=== PATIENT | female | born 1995 | race Caucasian/White ===

== ENCOUNTER 2017-03-14 07:07 | Emergency (ER) | payer SELFPAY ==
[~2017-03-14] VITALS: Ht 170.2 cm; Wt 107.9 kg
[~2017-03-14 07:07] MED LIST: CIPR750T2 PO; NYST100010 TOP; PYRI200T4 PO
[2017-03-14 07:10] VITALS: BP 125/86; PULSE 75; RESP 16; TEMP 98.2; O2SAT 97
--- NOTE | 2017-03-14 07:23 | PD ---
HPI Chief Complaint: Complaint Time Seen by Provider: 07:16 Travel History International Travel<30 days: No Contact w/Intl Traveler<30days: No Traveled to known affect area: No History of Present Illness HPI This is a 22-year-old female who presents to the emergency department having woken up this morning with pain with urination, constant, moderate severity, associated with some lower abdominal cramping. She also reports that when she looked to her vagina looked very swollen which is unusual for her. She denies any vaginal discharge. 9 months ago she was told she had PID, and she also says she has recurrent urinary tract infections and kidney stones. She has had one sexual partner in the last 6 months. She denies any fevers or chills and denies any vomiting. PFSH Past Medical History Depression: Yes Diminished Hearing: No Genitourinary: Yes (frequent uti) Kidney Stones: Yes Reproductive: Yes (BODY DOESNT PRODUCE PERIODS) Immunizations Current: Yes ?: Not : 0 Social History Alcohol Use: Yes (occasionally on weekends) Tobacco Use: No Substance Use: Yes (thc) Allergies-Medications (Allergen,Severity, Reaction): Coded Allergies: Amoxicillin (Verified Allergy, Severe, RASH, 03/14/17) Penicillin (Verified Allergy, Severe, Rash, 03/14/17) Reported Meds & Prescriptions Reported Meds & Active Scripts Active No Active Prescriptions or Reported Medications Review of Systems Except as stated in HPI: all other systems reviewed are Neg Physical Exam Narrative GENERAL:Well appearing, no acute distress SKIN: Focused skin assessment warm and dry. HEAD: Atraumatic. Normocephalic. EYES: Pupils equal and round. No injection or drainage. ENT: Moist mucous membranes NECK: Trachea midline. CARDIOVASCULAR: Regular rate and rhythm. No murmur appreciated. RESPIRATORY: Clear to auscultation. Breath sounds equal bilaterally. GASTROINTESTINAL: Abdomen soft, mildly tender to palpation in the suprapubic region without rebound or guarding. [employer]: edema and swelling of the vulva and labia minora with mild amount of cheesy white discharge in the vault. No cervical motion or adnexal tenderness. MUSCULOSKELETAL: No obvious deformities. NEUROLOGICAL: Awake and alert. No obvious cranial nerve deficits. Moving all extremities. PSYCHIATRIC: Appropriate mood and affect; insight and judgment normal. Data Data Last Documented VS Vital Signs Date Time Temp Pulse Resp B/P Pulse Ox O2 Delivery O2 Flow Rate FiO2 03/14/17 07:10 98.2 75 16 125/86 97 Orders Urinalysis - C+S If Indicated (03/14/17 07:12) Wet Prep Profile (03/14/17 07:21) Gc And Chlamydia Pcr (03/14/17 07:21) Bedside Glucose ELIZABETH.AC&HS (03/14/17 07:42) Labs Laboratory Tests Test 03/14/17 03/14/17 07:15 07:40 Urine Collection Type CLEAN CATCH Urine Color YELLOW Urine Turbidity CLEAR Urine pH 6.0 Urine Specific [place] 1.018 Urine Protein NEG mg/dL Urine Glucose (UA) NEG mg/dL Urine Ketones NEG mg/dL Urine Occult Blood NEG Urine Nitrite NEG Urine Bilirubin NEG Urine Leukocyte Esterase NEG Urine RBC 0-3 /hpf Urine WBC 0-2 /hpf Urine Squamous Epithelial 6-8 /hpf Cells Microscopic Urinalysis Comment CULT NOT INDICATED Urine Collection Time 07:15 Clue Cells (Wet Prep) NONE SEEN Vaginal Trichomonas (Wet Prep) NONE SEEN Vaginal Yeast (Wet Prep) NONE SEEN MDM Medical Decision Making Medical Screen Exam Complete: Yes Emergency Medical Condition: Yes Interpretation(s) Urinalysis is negative for infection Wet prep demonstrates no clue cells or yeast Differential Diagnosis Urinary tract infection, yeast infection, cervicitis, irritant dermatitis Narrative Course This is a 25-year-old female who presents to the emergency department with swelling of her vagina and dysuria. On genital exam the patient has edema and swelling of the vulva consistent with an irritant dermatitis. The patient does admit that she has been using a new soap that she bought from [employer] over the past 2 weeks. She also has a scant amount of cheesy white discharge consistent with a yeast infection. Despite wet prep results given her physical exam plan for treatment with fluconazole and hydrocortisone cream and I instructed her to discontinue use of her new soap. Diagnosis Primary Impression: Irritant dermatitis Additional Impression: Yeast infection Patient Instructions: General Instructions Additional Instructions: If you develop fever, chills, severe abdominal pain, persistent vomiting or inability to eat return to the emergency department. Follow up with [facility] at: Follow up with: [facility] [address] [place] [address] Office Hours Monday - 9:00 am - 5:30 pm Monday 8:00 am - 12:00 pm Teen Tuesdays 4:00 - 6:30 pm Med/Other Pt SpecificInfo: Prescription(s) given Scripts Hydrocortisone Topical 1% Cream1 Applic TOPICAL BID PRN (ITCHING) 5 Days Ref 0 Prov:Keya Sampson MD 03/14/17 Disposition: 01 DISCHARGE HOME Condition: Stable Keya Sampson MD March 14, 2017 07:23
[2017-03-14 07:31] LABS: BLOOD, URINE NEG (NEG); GLUCOSE,URINE NEG (NEG); KETONE, URINE NEG (NEG); NITRITE,URINE NEG (NEG)
[2017-03-14 07:37] LABS: METHOD OF COLLECTION CLEAN CATCH; URINE COLOR YELLOW (YELLW/STRAW)
[2017-03-14 07:38] LABS: RBC, URINE 0-3 /hpf (0-3); WBC, URINE 0-2 /hpf (0-5)
[2017-03-14 07:39] LABS: COMMENT (UR) CULT NOT INDICATED; CULTURE IF INDICATED CULT NOT INDICATED
[2017-03-14] MEDS ORDERED: HYDR1CRE TOPICAL (08:12)
[2017-03-14] MEDS ORDERED: FLUCONAZOLE 100 MG TAB PO ONE (08:15)
[2017-03-14 12:55] LABS: CHLAMYDIA PCR NOT DETECTED (NOT DETECT); NEISSERIA PCR NOT DETECTED (NOT DETECT)
== END 2017-03-14 08:42 | disposition home or self-care (01) ==
LOC: PHED 07:07
DX: L24.9 Irritant contact dermatitis, unspecified cause (principal); B37.9 Candidiasis, unspecified; F32.9 Major depressive disorder, single episode, unspecified
CPT/HCPCS: 81001; 87210; 87491; 87591; 99283

== ENCOUNTER 2017-04-05 09:01 | Emergency (ER) | payer SELFPAY ==
[~2017-04-05 09:01] MED LIST changes: -CIPR750T2 PO; +HYDR1CRE TOPICAL; -NYST100010 TOP; -PYRI200T4 PO
[2017-04-05 09:09] VITALS: BP 121/90; PULSE 73; RESP 20; TEMP 98; O2SAT 97
--- NOTE | 2017-04-05 09:42 | PD ---
HPI Chief Complaint: Abdominal Pain Time Seen by Provider: 09:26 Travel History International Travel<30 days: No Contact w/Intl Traveler<30days: No Traveled to known affect area: No History of Present Illness HPI This 22-year-old female is having some abdominal pain off and on since Monday. The pain she is having is somewhat migratory and crampy in nature. She has had some nausea. She has had 2-3 loose stools per day. She has not vomited. She does not think she is . She does not have periods since he age of 16. PFSH Past Medical History Medical History: Denies Significant Hx Depression: Yes Diminished Hearing: No Genitourinary: Yes (frequent uti) Kidney Stones: Yes Reproductive: Yes (BODY DOESNT PRODUCE PERIODS) Immunizations Current: Yes ?: Not LMP: NEVER PER PT : 0 Past Surgical History Surgical History: No Previous Surgery Social History Alcohol Use: Yes (occasionally on weekends) Tobacco Use: No (never) Substance Use: Yes (thc) Allergies-Medications (Allergen,Severity, Reaction): Coded Allergies: Amoxicillin (Verified Allergy, Severe, RASH, 04/05/17) Penicillin (Verified Allergy, Severe, Rash, 04/05/17) Reported Meds & Prescriptions Reported Meds & Active Scripts Active Zofran Odt (Ondansetron Odt) 4 Mg Tab 4 Mg SL Q6HR PRN Dicyclomine (Dicyclomine HCl) 20 Mg Tab 20 Mg PO TID Hydrocortisone Topical 1% Cream 1 Applic TOPICAL BID PRN 5 Days Review of Systems General / Constitutional: No: Fever, Chills Eyes: No: Diploplia, Blurred Vision HENT: No: Headaches, Vertigo Cardiovascular: No: Chest Pain or Discomfort, Palpitations Respiratory: No: Cough, Shortness of Breath Gastrointestinal: Positive: Nausea, Diarrhea, Abdominal Pain Genitourinary: No: Urgency, Frequency Musculoskeletal: No: Myalgias Skin: No Rash Neurologic: No: Weakness Psychiatric: No: Anxiety Physical Exam Narrative GENERAL: Well-developed female SKIN: Focused skin assessment warm/dry. HEAD: Atraumatic. Normocephalic. EYES: Pupils equal and round. No scleral icterus. No injection or drainage. ENT: No nasal bleeding or discharge. Mucous membranes pink and moist. NECK: Trachea midline. No JVD. CARDIOVASCULAR: Regular rate and rhythm. No murmur appreciated. RESPIRATORY: No accessory muscle use. Clear to auscultation. Breath sounds equal bilaterally. GASTROINTESTINAL: Abdomen soft, non-tender, nondistended. Hepatic and splenic margins not palpable. Bowel sounds active Pelvic: There is slight discharge. There is no pain with movement of the cervix. No masses felt MUSCULOSKELETAL: No obvious deformities. No clubbing. No cyanosis. No edema. NEUROLOGICAL: Awake and alert. No obvious cranial nerve deficits. Motor grossly within normal limits. Normal speech. PSYCHIATRIC: Appropriate mood and affect; insight and judgment normal. Data Data Last Documented VS Vital Signs Date Time Temp Pulse Resp B/P Pulse Ox O2 Delivery O2 Flow Rate FiO2 04/05/17 09:09 98.0 73 20 121/90 97 Orders Urinalysis - C+S If Indicated (04/05/17 09:30) Complete Blood Count With Diff (04/05/17 09:38) Comprehensive Metabolic Panel (04/05/17 09:38) Sodium Chlor 0.9% 1000 Ml Inj (Ns 1000 M (04/05/17 09:45) Ondansetron Inj (Zofran Inj) (04/05/17 09:45) Ed Urine Pregnancytest Poc (04/05/17 09:38) Gc And Chlamydia Pcr (04/05/17 10:58) Wet Prep Profile (04/05/17 10:58) Labs Laboratory Tests Test 04/05/17 04/05/17 04/05/17 09:35 10:00 11:00 Urine Collection Type CLEAN CATCH Urine Color YELLOW Urine Turbidity CLEAR Urine pH 5.5 Urine Specific [place] 1.008 Urine Protein NEG mg/dL Urine Glucose (UA) NEG mg/dL Urine Ketones NEG mg/dL Urine Occult Blood TRACE Urine Nitrite NEG Urine Bilirubin NEG Urine Leukocyte Esterase NEG Urine RBC 0-3 /hpf Urine WBC 0-2 /hpf Urine Squamous Epithelial > 8 /hpf Cells Urine Bacteria RARE /hpf Microscopic Urinalysis Comment CULT NOT INDICATED Urine Collection Time 09:35 White Blood Count 9.1 TH/MM3 Red Blood Count 4.91 MIL/MM3 Hemoglobin 14.6 GM/DL Hematocrit 41.8 % Mean Corpuscular Volume 85.1 FL Mean Corpuscular Hemoglobin 29.8 PG Mean Corpuscular Hemoglobin 34.9 % Concent Red Cell Distribution Width 11.7 % Platelet Count 243 TH/MM3 Mean Platelet Volume 7.7 FL Neutrophils (%) (Auto) 52.2 % Lymphocytes (%) (Auto) 36.2 % Monocytes (%) (Auto) 6.3 % Eosinophils (%) (Auto) 4.3 % Basophils (%) (Auto) 1.0 % Neutrophils # (Auto) 4.7 TH/MM3 Lymphocytes # (Auto) 3.3 TH/MM3 Monocytes # (Auto) 0.6 TH/MM3 Eosinophils # (Auto) 0.4 TH/MM3 Basophils # (Auto) 0.1 TH/MM3 CBC Comment DIFF FINAL Differential Comment Sodium Level 142 MEQ/L Potassium Level 4.2 MEQ/L Chloride Level 108 MEQ/L Carbon Dioxide Level 26.2 MEQ/L Anion Gap 8 MEQ/L Blood Urea Nitrogen 12 MG/DL Creatinine 0.93 MG/DL Estimat Glomerular Filtration 75 ML/MIN Rate Random Glucose 87 MG/DL Calcium Level 8.3 MG/DL Total Bilirubin 0.4 MG/DL Aspartate Amino Transf 28 U/L (AST/SGOT) Alanine Aminotransferase 48 U/L (ALT/SGPT) Alkaline Phosphatase 66 U/L Total Protein 7.3 GM/DL Albumin 3.6 GM/DL Clue Cells (Wet Prep) NONE SEEN Vaginal Trichomonas (Wet Prep) NONE SEEN Vaginal Yeast (Wet Prep) NONE SEEN MDM Medical Decision Making Medical Screen Exam Complete: Yes Emergency Medical Condition: Yes Medical Record Reviewed: Yes Differential Diagnosis Differential includes gastroenteritis, enteritis, kidney stone Narrative Course Urine is negative for blood. White count is 9000. Patient is complaining of some nausea . I believe she has a gastroenteritis most likely viral. She'll be prescribed Bentyl and Zofran Diagnosis Primary Impression: Gastroenteritis Scripts Ondansetron Odt (Zofran Odt)4 Mg Tab4 Mg SL Q6HR PRN (Nausea/Vomiting) #10 TAB Ref 0 Prov:Jayden Keita MD 04/05/17 Dicyclomine 20 Mg Tab20 Mg PO TID #20 TAB Ref 0 Prov:Jayden Keita MD 04/05/17 Disposition: 01 DISCHARGE HOME Condition: Stable Jayden Keita MD Apr 05, 2017 09:41
[2017-04-05] MEDS ORDERED: SODIUM CHLOR 0.9% 1000 ML INJ 1,000 ML IV ONE (09:45)
[2017-04-05] MEDS ORDERED: ONDANSETRON HCL 4 MG/2 ML VIAL IV PUSH ONE (09:45)
[2017-04-05 10:08] LABS: BLOOD, URINE TRACE (NEG); GLUCOSE,URINE NEG (NEG); KETONE, URINE NEG (NEG); NITRITE,URINE NEG (NEG); PH, URINE 5.5 (5.0-8.5)
[2017-04-05 10:19] LABS: METHOD OF COLLECTION CLEAN CATCH; URINE COLOR YELLOW (YELLW/STRAW)
[2017-04-05 10:20] LABS: RBC, URINE 0-3 /hpf (0-3); SQUAMOUS EPITHELIAL CELL URINE > 8 /hpf (0-5); WBC, URINE 0-2 /hpf (0-5)
[2017-04-05 10:20] LABS: CHLORIDE 108 MEQ/L (98-107); POTASSIUM 4.2 MEQ/L (3.5-5.1); SODIUM (NA) 142 MEQ/L (136-145)
[2017-04-05 10:21] LABS: BACTERIA, URINE RARE /hpf; COMMENT (UR) CULT NOT INDICATED; CULTURE IF INDICATED CULT NOT INDICATED
[2017-04-05 10:25] LABS: ANION GAP 8 MEQ/L (5-15); BICARBONATE 26.2 MEQ/L (21.0-32.0); BLOOD UREA NITROGEN 12 MG/DL (7-18)
[2017-04-05 10:28] LABS: ALT (GPT) 48 U/L (10-53); AST (GOT) 28 U/L (15-37); GLOMERULAR FILTRATION RATE 75 ML/MIN (>89)
[2017-04-05 10:30] LABS: AUTOMATED NEUTROPHIL # 4.7 TH/MM3 (1.8-7.7); BASOPHIL # 0.1 TH/MM3 (0-0.2); EOSINOPHIL # 0.4 TH/MM3 (0-0.4); EOSINOPHIL % 4.3 % (0.0-4.0); HEMATOCRIT 41.8 % (35.0-46.0); HEMO FLAGS DIFF FINAL; LYMPH % 36.2 % (9.0-44.0); LYMPHOCYTE # 3.3 TH/MM3 (1.0-4.8); MEAN CELL VOLUME 85.1 FL (80.0-100.0); MEAN CORPUSCULAR HEMOGLOBIN 29.8 PG (27.0-34.0); MEAN CORPUSCULAR HGB CONC 34.9 % (32.0-36.0); MONO % 6.3 % (0.0-8.0); NEUT % 52.2 % (16.0-70.0); PLATELET COUNT 243 TH/MM3 (150-450); RED BLOOD COUNT 4.91 MIL/MM3 (4.00-5.30); RED CELL DISTRIBUTION WIDTH 11.7 % (11.6-17.2); TOTAL BILIRUBIN ADULT 0.4 MG/DL (0.2-1.0); WHITE BLOOD COUNT 9.1 TH/MM3 (4.0-11.0)
[2017-04-05 10:31] LABS: ALKALINE PHOSPHATASE 66 U/L (45-117)
[2017-04-05] MEDS ORDERED: DICY20TA10 PO (11:03)
[2017-04-05] MEDS ORDERED: ZOFR4TAB3 SL (11:03)
[2017-04-05 11:52] VITALS: BP 120/88; PULSE 77; RESP 18; O2SAT 99
[2017-04-05 15:45] LABS: CHLAMYDIA PCR NOT DETECTED (NOT DETECT); NEISSERIA PCR NOT DETECTED (NOT DETECT)
== END 2017-04-05 11:58 | disposition home or self-care (01) ==
LOC: PHED 09:01
DX: K52.9 Noninfective gastroenteritis and colitis, unspecified (principal); Z87.442 Personal history of urinary calculi
CPT/HCPCS: 80053; 81001; 84703; 85025; 87210; 87491; 87591; 96361; 96374; 99284; J2405; J7030

== ENCOUNTER 2018-03-06 00:02 | Emergency (ER) | payer SELFPAY ==
[~2018-03-06] VITALS: Ht 167.6 cm; Wt 112.4 kg
[~2018-03-06 00:02] MED LIST changes: +DICY20TA10 PO; +ZOFR4TAB3 SL
[2018-03-06 00:06] VITALS: BP 158/96; PULSE 91; RESP 16; TEMP 97.9; O2SAT 98
[2018-03-06] MEDS ORDERED: MEDR4PAK PO (00:21)
[2018-03-06] MEDS ORDERED: HYDR-3133 PO (00:21)
--- NOTE | 2018-03-06 00:28 | PD ---
HPI Chief Complaint: Suspected bug bite. Time Seen by Provider: 00:09 Travel History International Travel<30 days: No Contact w/Intl Traveler<30days: No Traveled to known affect area: No History of Present Illness HPI This is a 23-year-old female who presents today with complaints of right arm redness and itching. Patient states that she got bit by something yesterday and has become more painful and itchy. She denies any fevers, chills. She does report that it ann on the middle where she feels as though she was bit and itches on the surrounding area. She reports is become more red over the last 24 hours. She reports that her mom was concerned that this may be a brown recluse bite. PFSH Past Medical History Depression: Yes Diminished Hearing: No Genitourinary: Yes (frequent uti) Kidney Stones: Yes Reproductive: Yes (BODY DOESNT PRODUCE PERIODS) Immunizations Current: Yes : 0 Social History Alcohol Use: Yes (occasionally on weekends) Tobacco Use: No (never) Substance Use: Yes (thc) Allergies-Medications (Allergen,Severity, Reaction): Coded Allergies: amoxicillin (Unverified Allergy, Severe, RASH, 06/06/17) penicillin G (Unverified Allergy, Severe, Rash, 06/06/17) Reported Meds & Prescriptions Reported Meds & Active Scripts Active Medrol Dosepak (Methylprednisolone) 4 Mg Dspk 4 Mg PO DIRECTED Per Pharmacist direction Hydroxyzine HCl 25 Mg Tab 25 Mg PO QID PRN Zofran Odt (Ondansetron Odt) 4 Mg Tab 4 Mg SL Q6HR PRN Dicyclomine (Dicyclomine HCl) 20 Mg Tab 20 Mg PO TID Hydrocortisone Topical 1% Cream 1 Applic TOPICAL BID PRN 5 Days Review of Systems Except as stated in HPI: all other systems reviewed are Neg HENT: No: Headaches, Neck Stiffness Respiratory: No: Shortness of Breath, Wheezing Gastrointestinal: No: Nausea, Vomiting Skin: Positive Itching, Positive Lesions (Several red appearing bug bites with surrounding erythema) Physical Exam Narrative GENERAL: Well-nourished, well-developed patient. SKIN: Focused skin assessment warm/dry. HEAD: Normocephalic/atraumatic. EYES: No scleral icterus. No injection or drainage. MUSCULOSKELETAL: On examination patient's right arm, there is 4 1/4 cm red areas with surrounding light pink erythema. This has the look of a secondary allergic process. There is no evidence of drainage. There is no cellulitic appearance. There is no lymphangitis. There is full range of motion. NEUROLOGICAL: Awake and alert. Cranial nerves II through XII intact. Motor and sensory grossly within normal limits. Five out of 5 muscle strength in all muscle groups. Normal speech. Data Data Last Documented VS Vital Signs Date Time Temp Pulse Resp B/P (MAP) Pulse Ox O2 Delivery O2 Flow Rate FiO2 03/06/18 00:06 97.9 91 16 158/96 (116) 98 Orders Orders Tetanus/Diphtheria Tox Adult (Tetanus/Di (03/06/18 00:30) Diphenhydramine Inj (Benadryl Inj) (03/06/18 00:30) Prednisone (Deltasone) (03/06/18 00:30) MDM Medical Decision Making Medical Screen Exam Complete: Yes Emergency Medical Condition: Yes Differential Diagnosis Bug bite versus topical dermatitis versus cellulitis Narrative Course 23-year-old female presents with painful and itchy red lesions to her right middle forearm and lower inner arm. The patient feels as though she was bitten by something yesterday. She states that the pink surrounding redness has increased since yesterday. She states she took Benadryl and feels it got worse with placing ice on it. The patient be instructed to use moist compresses on the affected area. She is instructed to keep it dry during the remainder of the day. She will be given a prescription for hydroxyzine 25 mg p.o. 4 times daily as needed as well as a Medrol Dosepak. She has been given 50 mg Benadryl injection here as well as a tetanus immunization and 40 mg of prednisone. She is instructed to return if it develops any worsening appearance. Diagnosis Primary Impression: Suspected insect bite with secondary histamine release Additional Instructions: Moist compress 3-4 times daily. Keep it dry during the remainder of the day. Return if fevers chills, increased redness, or any other reason that concerns you. Med/Other Pt SpecificInfo: Prescription(s) given Scripts Methylprednisolone Dosepak (Medrol Dosepak) 4 Mg Dspk 4 MG PO DIRECTED, #1 DSPK 0 Refills Per Pharmacist direction Prov: Joe Barrientos MD 03/06/18 Hydroxyzine HCl (Hydroxyzine HCl) 25 Mg Tab 25 MG PO QID Y for itching, #20 TAB 0 Refills Prov: Joe Barrientos MD 03/06/18 Disposition: 01 DISCHARGE HOME Condition: Stable Joe Barrientos MD March 06, 2018 00:28
[2018-03-06] MEDS ORDERED: predniSONE 20 MG TAB PO ONE (00:30)
[2018-03-06] MEDS ORDERED: TETANUS/DIPHTHERIA TOXOID ADULT 0.5 ML VIAL IM ONE (00:30)
[2018-03-06] MEDS ORDERED: diphenhydrAMINE HCL 50 MG/ML VIAL IM ONE (00:30)
== END 2018-03-06 00:50 | disposition home or self-care (01) ==
LOC: PHED 00:02
DX: L98.9 Disorder of the skin and subcutaneous tissue, unspecified (principal); F32.9 Major depressive disorder, single episode, unspecified; F12.90 Cannabis use, unspecified, uncomplicated; Z23 Encounter for immunization
CPT/HCPCS: 90471; 90714; 96372; 99283; J1200; J7512

== ENCOUNTER 2018-04-05 00:23 | Emergency (ER) | payer SELFPAY ==
[~2018-04-05] VITALS: Ht 167.6 cm; Wt 109.0 kg
[~2018-04-05 00:23] MED LIST changes: +HYDR-3133 PO; +MEDR4PAK PO
[2018-04-05 00:25] VITALS: BP 146/90; PULSE 76; RESP 18; TEMP 97.8; O2SAT 97
--- NOTE | 2018-04-05 01:00 | PD ---
HPI Chief Complaint: Flank/Kidney Pain Time Seen by Provider: 00:56 Travel History International Travel<30 days: No Contact w/Intl Traveler<30days: No Traveled to known affect area: No History of Present Illness HPI The patient is a 23-year-old female that complains of right flank pain beginning yesterday morning at 8:00. The pain goes from 0/10 which she has now to a sharp pain of 9/10. The pain is always on the right flank. She does have nausea without vomiting. She does have dysuria, frequency and urgency. She has a history of both kidney stones and recurrent urinary tract infections. She denies any fever. She states there is no possibility of . PFSH Past Medical History Depression: Yes Diminished Hearing: No Genitourinary: Yes (frequent uti) Kidney Stones: Yes Reproductive: Yes (BODY DOESNT PRODUCE PERIODS) Immunizations Current: Yes Tetanus Vaccination: < 5 Years Influenza Vaccination: No ?: Not : 0 Past Surgical History Surgical History: No Previous Surgery Social History Alcohol Use: Yes (occasionally ) Tobacco Use: No Substance Use: No (denies but HX of thc) Allergies-Medications (Allergen,Severity, Reaction): Coded Allergies: amoxicillin (Unverified Allergy, Severe, RASH, 04/05/18) penicillin G (Unverified Allergy, Severe, Rash, 04/05/18) Reported Meds & Prescriptions Reported Meds & Active Scripts Active Macrobid (Nitrofurantoin Monoh/Nitrofur Macro) 100 Mg Cap 100 Mg PO BID 10 Days Ibuprofen Liq (Ibuprofen) 100 Mg/5 Ml Susp 100 Mg PO Q6H PRN Flomax (Tamsulosin HCl) 0.4 Mg Cap 0.4 Mg PO HS Phenergan (Promethazine HCl) 25 Mg Tablet 25 Mg PO Q6H PRN Percocet (Oxycodone-Acetaminophen) 5-325 mg Tab 1-2 Tab PO Q4H PRN Medrol Dosepak (Methylprednisolone) 4 Mg Dspk 4 Mg PO DIRECTED Per Pharmacist direction Hydroxyzine HCl 25 Mg Tab 25 Mg PO QID PRN Zofran Odt (Ondansetron Odt) 4 Mg Tab 4 Mg SL Q6HR PRN Dicyclomine (Dicyclomine HCl) 20 Mg Tab 20 Mg PO TID Hydrocortisone Topical 1% Cream 1 Applic TOPICAL BID PRN 5 Days Review of Systems Except as stated in HPI: all other systems reviewed are Neg Physical Exam Narrative GENERAL: The patient is alert, oriented 3 in no apparent distress. Her vital signs show blood pressure 146/90 but are otherwise normal. SKIN: Focused skin assessment warm/dry. No wrist slash campos nor needle tracks are present. HEAD: Atraumatic. Normocephalic. EYES: Pupils equal and round. No scleral icterus. No injection or drainage. ENT: No nasal bleeding or discharge. Mucous membranes pink and moist. NECK: Trachea midline. No JVD. CARDIOVASCULAR: Regular rate and rhythm. No murmur appreciated. RESPIRATORY: No accessory muscle use. Clear to auscultation. Breath sounds equal bilaterally. GASTROINTESTINAL: Abdomen soft, non-tender, nondistended. Hepatic and splenic margins not palpable. No guarding or rebound is present. MUSCULOSKELETAL: No obvious deformities. No clubbing. No cyanosis. No edema. NEUROLOGICAL: Awake and alert. No obvious cranial nerve deficits. Motor grossly within normal limits. Normal speech. PSYCHIATRIC: Appropriate mood and affect; insight and judgment normal. Data Data Last Documented VS Vital Signs Date Time Temp Pulse Resp B/P (MAP) Pulse Ox O2 Delivery O2 Flow Rate FiO2 04/05/18 00:25 97.8 76 18 146/90 (108) 97 Orders Orders Urinalysis - C+S If Indicated (04/05/18 01:13) Ed Urine Pregnancytest Poc (04/05/18 01:13) Ct Abd/Pel W/O Iv Contrast (04/05/18 01:38) Urine Culture (04/05/18 01:05) Tamsulosin (Flomax) (04/05/18 02:30) Nitrofurantoin Monohyd Macrocr (Macrobid (04/05/18 02:30) Labs Laboratory Tests Test 04/05/18 01:05 Urine Color YELLOW Urine Turbidity CLOUDY Urine pH 6.5 Urine Specific [place] 1.025 Urine Protein 100 mg/dL Urine Glucose (UA) NEG mg/dL Urine Ketones TRACE mg/dL Urine Occult Blood LARGE Urine Nitrite POS Urine Bilirubin NEG Urine Urobilinogen 1.0 MG/DL Urine Leukocyte Esterase TRACE Urine RBC 10-14 /hpf Urine WBC 6-8 /hpf Urine Squamous Epithelial Cells 6-8 /hpf Urine Calcium Oxalate Crystals FEW /hpf Urine Amorphous Sediment LARGE Urine Bacteria FEW /hpf Urine Mucus FEW /lpf Microscopic Urinalysis Comment CULTURE INDICATED MDM Medical Decision Making Medical Screen Exam Complete: Yes Emergency Medical Condition: Yes Medical Record Reviewed: Yes Interpretation(s) The urine shows cloudy turbidity, 100 protein, trace ketones, large blood, positive nitrate, trace leukocyte esterase with 6-8 white cells and 10-14 red cells and few bacteria and culture is indicated. The CT abdomen/pelvis with no IV contrast shows distal right ureteral calculus measuring 2 mm with mild distal hydroureter. No evidence of hydronephrosis. There are multiple bilateral renal calculi also noted and multiple nonspecific mildly prominent retroperitoneal and left inguinal lymph nodes slightly increased in size when compared to a study of 2016. The spleen appears mildly prominent also. Differential Diagnosis Cystitis, pyelonephritis, urinary stone, appendicitis-unlikely Narrative Course The patient appears to have a 2 mm urinary stone with a mild cystitis. Plan: The patient was given Macrobid, Phenergan, Percocet, Flomax and Motrin. She should follow-up with her primary care physician. She should not drink alcohol or drive on the Percocet. Diagnosis Primary Impression: Urinary stone Additional Impression: Cystitis Additional Instructions: Do not drink alcohol or drive on the Percocet. The Flomax is to open up your urinary tube so that the stone will flow through. Drink plenty of liquids so that you have urine flowing around the stone. Follow-up with a urologist if you have continued pain. Med/Other Pt SpecificInfo: Prescription(s) given Scripts Nitrofurantoin Monohydrate Macrocrystals (Macrobid) 100 Mg Cap 100 MG PO BID for Infection for 10 Days, #20 CAP 0 Refills Prov: Gualberto Padron MD 04/05/18 Ibuprofen Liq (Ibuprofen Liq) 100 Mg/5 Ml Susp 100 MG PO Q6H Y for nic, #20 ML 0 Refills Prov: Gualberto Padron MD 04/05/18 Tamsulosin (Flomax) 0.4 Mg Cap 0.4 MG PO HS for Manage Prostate Problems, #10 CAP 0 Refills Prov: Gualberto Padron MD 04/05/18 Promethazine (Phenergan) 25 Mg Tablet 25 MG PO Q6H Y for NAUSEA OR VOMITING, #10 TAB 0 Refills Prov: Gualberto Padron MD 04/05/18 Oxycodone-Acetaminophen (Percocet) 5-325 mg Tab 1-2 TAB PO Q4H Y for PAIN, #10 TAB 0 Refills Prov: Gualberto Padron MD 04/05/18 Disposition: 01 DISCHARGE HOME Condition: Stable Gualberto Padron MD Apr 05, 2018 01:00
[2018-04-05 01:22] LABS: BILIRUBIN, URINE NEG (NEG); BLOOD, URINE LARGE (NEG); GLUCOSE,URINE NEG (NEG); KETONE, URINE TRACE mg/dL (NEG); NITRITE,URINE POS (NEG); PH, URINE 6.5 (5.0-8.5); URINE COLOR YELLOW (YELLW/STRAW); URINE LEUKOCYTE ESTERASE TRACE (NEG)
[2018-04-05 02:11] LABS: BACTERIA, URINE FEW /hpf; MUCUS URINE FEW /lpf (OCC)
--- NOTE | 2018-04-05 02:12 | RADRPT ---
EXAM DATE: 04/05/2018 1:50 AM EDT AGE/SEX: 23 years / Female INDICATIONS: Right flank pain. CLINICAL DATA: This is the patient's initial encounter. Patient reports that signs and symptoms have been present for 1 day and indicates a pain score of 8/10. MEDICAL/SURGICAL HISTORY: Renal calculi. . RADIATION DOSE: 24.14 CTDI (mGy) ; High dose protocol COMPARISON: [facility], CT ABDOMEN & PELVIS W/O CONTRAST, 05/16/2016. . TECHNIQUE: Multiple contiguous axial images were obtained through the abdomen. Images were obtained using multiple row detector helical technique. Using dose reduction techniques, radiation dose was ke pt as low as reasonably achievable to obtain optimal diagnostic quality images. FINDINGS: Lower Lungs: The visualized lower lungs are clear. Liver: The liver has a homogeneous density without space-occupying lesion. There is no dilation of th e biliary tree. Spleen: Spleen is partially visualized but is prominent size measuring greater than 12 cm in cranioc audal dimension. Pancreas: Unremarkable without mass or calcification. Kidneys: 3 mm calculus in the anterior midpole of the right kidney unchanged. Previously seen puncta te calculus in the upper pole the right kidney is no longer seen. 2 adjacent punctate calculi upper p ole of the left kidney are new. 3 mm calculus in the posterior mid pole of the left kidney has increa sed in size. 2 mm calculus in the distal right ureter just proximal to the ureterovesical junction. M ild distal right hydroureter. No evidence for hydronephrosis. No ureteral calculi on the left. Adrenal Glands: Unremarkable. Aorta: The aorta and proximal iliac vessels are grossly unremarkable without aneurysmal dilation. Bowel/Mesentery: No evidence of bowel dilatation. No free air or free fluid. Appendix within normal limits. Abdominal Wall: Intact. Retroperitoneum: Multiple mildly prominent retroperitoneal lymph nodes are again seen. The largest i s at the level of the lower poles of the kidneys measuring 1.5 x 0.9 cm. It measured 1.4 x 0.8 cm on the prior study. Bladder: Contours are smooth. Reproductive Organs: No abnormal masses or calcifications seen. Inguinal: Prominent left inguinal lymph nodes. The largest measures 2.4 x 1.3 cm compared to 2.0 x 1 .2 cm on the prior study. Bony Structures: Unremarkable. CONCLUSION: 1. Distal right ureteral calculus measuring 2 mm with mild distal hydroureter. No evidence of hydron ephrosis. 2. Multiple bilateral renal calculi. 3. Multiple nonspecific mildly prominent retroperitoneal and left inguinal lymph nodes, slightly inc reased in size when compared to the prior study 2015. 4. Spleen also appears mildly prominent in size. It measured 13 cm in craniocaudal dimension on the prior study and is not fully visualized on this study but grossly unchanged in inferior extent. Electronically signed by: Josef Riley MD 04/05/2018 2:10 AM EDT
[2018-04-05 02:13] LABS: AMORPHOUS SEDIMENT, URINE LARGE; CALCIUM OXALATE CRYSTALS,URINE FEW /hpf
[2018-04-05] MEDS ORDERED: PERC5TAB12 PO (02:30)
[2018-04-05] MEDS ORDERED: NITROFURANTOIN MONOHYD MACROCR 100 MG CAP PO ONE (02:30)
[2018-04-05] MEDS ORDERED: TAMS5CAP PO (02:30)
[2018-04-05] MEDS ORDERED: PROM25TA10 PO (02:30)
[2018-04-05] MEDS ORDERED: TAMSULOSIN HCL 0.4 MG CAP PO ONE (02:30)
[2018-04-05] MEDS ORDERED: MACR100C2 PO (02:30)
[2018-04-05] MEDS ORDERED: IBUP100S11 PO (02:30)
[2018-04-05 02:53] VITALS: BP 130/73
== END 2018-04-05 02:56 | disposition home or self-care (01) ==
LOC: PHED 00:23
DX: N20.1 Calculus of ureter (principal); N30.90 Cystitis, unspecified without hematuria; F32.9 Major depressive disorder, single episode, unspecified; Z87.442 Personal history of urinary calculi; Z87.440 Personal history of urinary (tract) infections
CPT/HCPCS: 74176; 81001; 84703; 87086; 99284

== ENCOUNTER 2018-04-12 11:13 | Emergency (ER) | payer SELFPAY ==
[~2018-04-12] VITALS: Ht 170.2 cm; Wt 109.0 kg
[~2018-04-12 11:13] MED LIST changes: +IBUP100S11 PO; +MACR100C2 PO; +PERC5TAB12 PO; +PROM25TA10 PO; +TAMS5CAP PO
[2018-04-12 11:19] VITALS: BP 132/95; PULSE 92; RESP 16; TEMP 98.1; O2SAT 95
[2018-04-12] MEDS ORDERED: SODIUM CHLOR 0.9% 1000 ML INJ 1,000 ML IV SCH (11:38)
--- NOTE | 2018-04-12 11:44 | PD ---
HPI Chief Complaint: GI Complaint Time Seen by Provider: 11:38 Travel History International Travel<30 days: No Contact w/Intl Traveler<30days: No Traveled to known affect area: No History of Present Illness HPI 23-year-old female patient with history of kidney stones, presents to the ER today because she was seen a week ago for kidney stones and since then has been having problems with nausea and intermittent vomiting vomiting yesterday, but still is nauseous today. She has also had intermittent abdominal pains with her vomiting. She is denying any current pain now. She has not had a bowel movement in a while but she does not remember when the last one was. She denies any fevers or other symptoms. Modifying Factors: None Associated Signs & Symptoms: Nausea, intermittent vomiting, abdominal pains intermittently, none currently Risk Factors: Recent kidney stone PFSH Past Medical History Depression: Yes Diminished Hearing: No Genitourinary: Yes (frequent uti) Kidney Stones: Yes Reproductive: Yes (BODY DOESNT PRODUCE PERIODS) Immunizations Current: Yes ?: Not LMP: None : 0 Social History Alcohol Use: Yes (occasionally ) Tobacco Use: No Substance Use: No (denies but HX of thc) Allergies-Medications (Allergen,Severity, Reaction): Coded Allergies: amoxicillin (Unverified Allergy, Severe, RASH, 04/12/18) penicillin G (Unverified Allergy, Severe, Rash, 04/12/18) Reported Meds & Prescriptions Reported Meds & Active Scripts Active Macrobid (Nitrofurantoin Monoh/Nitrofur Macro) 100 Mg Cap 100 Mg PO BID 10 Days Ibuprofen Liq (Ibuprofen) 100 Mg/5 Ml Susp 100 Mg PO Q6H PRN Flomax (Tamsulosin HCl) 0.4 Mg Cap 0.4 Mg PO HS Phenergan (Promethazine HCl) 25 Mg Tablet 25 Mg PO Q6H PRN Percocet (Oxycodone-Acetaminophen) 5-325 mg Tab 1-2 Tab PO Q4H PRN Medrol Dosepak (Methylprednisolone) 4 Mg Dspk 4 Mg PO DIRECTED Per Pharmacist direction Hydroxyzine HCl 25 Mg Tab 25 Mg PO QID PRN Zofran Odt (Ondansetron Odt) 4 Mg Tab 4 Mg SL Q6HR PRN Dicyclomine (Dicyclomine HCl) 20 Mg Tab 20 Mg PO TID Hydrocortisone Topical 1% Cream 1 Applic TOPICAL BID PRN 5 Days Review of Systems Except as stated in HPI: all other systems reviewed are Neg Physical Exam Narrative GENERAL: Well-developed young female patient currently in mild distress. Awake and oriented 3. SKIN: Focused skin assessment warm/dry. HEAD: Atraumatic. Normocephalic. EYES: Pupils equal and round. No scleral icterus. No injection or drainage. ENT: No nasal bleeding or discharge. Mucous membranes pink and moist. NECK: Trachea midline. No JVD. CARDIOVASCULAR: Regular rate and rhythm. No murmur appreciated. RESPIRATORY: No accessory muscle use. Clear to auscultation. Breath sounds equal bilaterally. GASTROINTESTINAL: Abdomen soft, non-tender, nondistended. Hepatic and splenic margins not palpable. MUSCULOSKELETAL: No obvious deformities. No clubbing. No cyanosis. No edema. NEUROLOGICAL: Awake and alert. No obvious cranial nerve deficits. Motor grossly within normal limits. Normal speech. PSYCHIATRIC: Appropriate mood and affect; insight and judgment normal. Data Data Last Documented VS Vital Signs Date Time Temp Pulse Resp B/P (MAP) Pulse Ox O2 Delivery O2 Flow Rate FiO2 04/12/18 13:50 86 16 141/72 (95) 99 Room Air 04/12/18 11:19 98.1 Orders Orders Complete Blood Count With Diff (04/12/18 11:38) Comprehensive Metabolic Panel (04/12/18 11:38) Lipase (04/12/18 11:38) Urinalysis - C+S If Indicated (04/12/18 11:38) Iv Access Insert/Monitor (04/12/18 11:38) Ecg Monitoring (04/12/18 11:38) Oximetry (04/12/18 11:38) Sodium Chlor 0.9% 1000 Ml Inj (Ns 1000 M (04/12/18 11:38) Sodium Chloride 0.9% Flush (Ns Flush) (04/12/18 11:45) Ed Urine Pregnancytest Poc (04/12/18 11:38) Metoclopramide Inj (Reglan Inj) (04/12/18 11:45) Us Abdomen Gallbladder (04/12/18 12:35) Labs Laboratory Tests Test 04/12/18 11:52 White Blood Count 12.0 TH/MM3 Red Blood Count 4.78 MIL/MM3 Hemoglobin 14.4 GM/DL Hematocrit 41.1 % Mean Corpuscular Volume 86.1 FL Mean Corpuscular Hemoglobin 30.1 PG Mean Corpuscular Hemoglobin Concent 35.0 % Red Cell Distribution Width 12.2 % Platelet Count 153 TH/MM3 Mean Platelet Volume 7.5 FL CBC Comment AUTO DIFF Differential Total Cells Counted 100 Neutrophils % (Manual) 26 % Band Neutrophils % 1 % Lymphocytes % 35 % Monocytes % 9 % Neutrophils # (Manual) 3.2 TH/MM3 Differential Comment FINAL DIFF MANUAL Atypical Lymphocytes 29 % Platelet Estimate NORMAL Platelet Morphology Comment NORMAL Urine Collection Type VOIDED Urine Color YELLOW Urine Turbidity CLEAR Urine pH 6.5 Urine Specific Harlan 1.010 Urine Protein NEG mg/dL Urine Glucose (UA) NEG mg/dL Urine Ketones NEG mg/dL Urine Occult Blood TRACE Urine Nitrite NEG Urine Bilirubin NEG Urine Urobilinogen 1.0 MG/DL Urine Leukocyte Esterase NEG Urine WBC 0-2 /hpf Urine Squamous Epithelial Cells >8 /hpf Microscopic Urinalysis Comment CULT NOT INDICATED Blood Urea Nitrogen 9 MG/DL Creatinine 0.78 MG/DL Random Glucose 90 MG/DL Total Protein 7.6 GM/DL Albumin 3.5 GM/DL Calcium Level 8.7 MG/DL Alkaline Phosphatase 198 U/L Aspartate Amino Transf (AST/SGOT) 258 U/L Alanine Aminotransferase (ALT/SGPT) 320 U/L Total Bilirubin 0.9 MG/DL Sodium Level 136 MEQ/L Potassium Level 3.9 MEQ/L Chloride Level 103 MEQ/L Carbon Dioxide Level 25.1 MEQ/L Anion Gap 8 MEQ/L Estimat Glomerular Filtration Rate 92 ML/MIN Lipase 73 U/L MDM Medical Decision Making Medical Screen Exam Complete: Yes Emergency Medical Condition: Yes Medical Record Reviewed: Yes Interpretation(s) Laboratory Tests Test 04/12/18 11:52 White Blood Count 12.0 TH/MM3 (4.0-11.0) Monocytes % 9 % (0-8) Atypical Lymphocytes 29 % (0-0) Alkaline Phosphatase 198 U/L (45-117) Aspartate Amino Transf (AST/SGOT) 258 U/L (15-37) Alanine Aminotransferase (ALT/SGPT) 320 U/L (10-53) Last 24 hours Impressions Gall Bladder Ultrasound 04/12/18 1235 Signed Impressions: CONCLUSION: 1. 0.7 cm stone in the right kidney. This was seen on the prior CT examination . 2. Questionable masslike area seen between the pancreas and the liver on ultra sound. In comparing this with the CT, this area is thought to actually represen t the duodenum. No mass was seen on the CT in this region. Differential Diagnosis Nausea, vomiting, constipation, abdominal discomfort intermittently: Opiate side effects versus obstruction versus ileus versus electrolyte abnormalities versus dehydration Narrative Course Lab work shows liver enzyme elevations of uncertain etiologies. Patient denies being on any significant amount of Tylenol, has been taking her Percocets half at a time but has not taken in several days as well. She otherwise denies any IV drug use. She denies any previous liver disease and is not on any cholesterol medications. Transabdominal ultrasound was done which shows a normal gallbladder, did not show any signs of stones. She does have a 0.7 cm kidney stone which was not previously seen as well on the CAT scan. She has not yet followed up with a urologist. Lab work was fairly unremarkable otherwise. She does not have UTI anymore. She appears fairly comfortable in the ER and is not complaining of pain. She has not had any vomiting episodes in the ER. At this point, my plan would be to release her with follow-up to urology considering the size of the stone. Return for worsening in symptoms as necessary. The plan has been discussed with her and she states understanding. Diagnosis Primary Impression: Renal colic on right side Additional Impression: Elevated liver enzymes Referrals: Michi Valenzuela MD Additional Instructions: Follow-up with your primary care doctor and urologist regarding the kidney stones as well as elevated liver enzymes. Return for any worsening in vomiting , pain, and as needed. Med/Other Pt SpecificInfo: Prescription(s) given Scripts Ondansetron Odt (Zofran Odt) 4 Mg Tab 4 MG SL Q6HR Y for Nausea/Vomiting, #10 TAB 0 Refills Prov: Adonis Yañez MD 04/12/18 Disposition: 01 DISCHARGE HOME Condition: Stable Adonis Yañez MD Apr 12, 2018 11:44
[2018-04-12 11:45] VITALS: O2SAT 99
[2018-04-12] MEDS ORDERED: SODIUM CHLORIDE 0.9% FLUSH 10 ML FLUSH IV FLUSH PRN (11:45)
[2018-04-12] MEDS ORDERED: METOCLOPRAMIDE HCL 10 MG/2 ML VIAL IV PUSH ONE (11:45)
[2018-04-12 12:07] LABS: HEMATOCRIT 41.1 % (35.0-46.0); HEMOGLOBIN 14.4 GM/DL (11.6-15.3); MEAN CELL VOLUME 86.1 FL (80.0-100.0); MEAN CORPUSCULAR HEMOGLOBIN 30.1 PG (27.0-34.0); MEAN PLATELET VOLUME 7.5 FL (7.0-11.0); PLATELET COUNT 153 TH/MM3 (150-450); RED BLOOD COUNT 4.78 MIL/MM3 (4.00-5.30); RED CELL DISTRIBUTION WIDTH 12.2 % (11.6-17.2)
[2018-04-12 12:12] LABS: BILIRUBIN, URINE NEG (NEG); BLOOD, URINE TRACE (NEG); GLUCOSE,URINE NEG (NEG); KETONE, URINE NEG (NEG); NITRITE,URINE NEG (NEG); PH, URINE 6.5 (5.0-8.5); URINE COLOR YELLOW (YELLW/STRAW); URINE LEUKOCYTE ESTERASE NEG (NEG)
[2018-04-12 12:20] LABS: CHLORIDE 103 MEQ/L (98-107); SODIUM (NA) 136 MEQ/L (136-145); SQUAMOUS EPITHELIAL CELL URINE >8 /hpf (0-5); WBC, URINE 0-2 /hpf (0-5)
[2018-04-12 12:23] LABS: CALCIUM 8.7 MG/DL (8.5-10.1)
[2018-04-12 12:24] LABS: ALBUMIN 3.5 GM/DL (3.4-5.0); BICARBONATE 25.1 MEQ/L (21.0-32.0); BLOOD UREA NITROGEN 9 MG/DL (7-18); GLUCOSE,RANDOM 90 MG/DL (74-106)
[2018-04-12 12:27] LABS: ALT (GPT) 320 U/L (10-53); AST (GOT) 258 U/L (15-37); CREATININE 0.78 MG/DL (0.50-1.00); GLOMERULAR FILTRATION RATE 92 ML/MIN (>89)
[2018-04-12 12:28] LABS: TOTAL BILIRUBIN ADULT 0.9 MG/DL (0.2-1.0); TOTAL PROTEIN 7.6 GM/DL (6.4-8.2)
[2018-04-12 12:30] LABS: ALKALINE PHOSPHATASE 198 U/L (45-117)
[2018-04-12 12:49] LABS: ATYPICAL LYMPHOCYTES 29 % (0-0); BANDS 1 % (0-6); LYMPHOCYTES 35 % (9-44); MONOCYTES 9 % (0-8); NEUTROPHIL # MANUAL DIFF 3.2 TH/MM3 (1.8-7.7); POLYS (SEG NEUTROPHILS) 26 % (16-70)
[2018-04-12 13:50] VITALS: BP 141/72; PULSE 86; RESP 16; O2SAT 99
--- NOTE | 2018-04-12 13:54 | RADRPT ---
EXAM DATE: 04/12/2018 1:31 PM EDT AGE/SEX: 23 years / Female INDICATIONS: Nausea and vomiting. CLINICAL DATA: This is the patient's initial encounter. Patient reports that signs and/or symptoms h ave been present for 2 days and indicates a pain score of 0/10. MEDICAL/SURGICAL HISTORY: . Nephrolithiasis. Amenorrhea. None. COMPARISON: [facility], CT ABDOMEN & PELVIS W/O CONTRAST, 04/05/2018. . MEASUREMENTS: Liver:__ 19.9 cm. Common Bile Duct:__ 5mm. FINDINGS: Liver: Increased echotexture without focal lesion or ductal dilation. Portal Vein: Hepatopedal flow seen in portal vein. Common Duct: No intraluminal mass or stone visualized. Gallbladder: Demonstrates no wall thickening or pericholecystic fluid. No stones visualized. Pancreas: The visualized portion of the pancreas appear normal. There is a hypoechoic area seen to t he right of the pancreatic head. This appears masslike on the ultrasound. However on the recent CT ex amination no mass is seen. This is likely related to the duodenum. Right Kidney: There is a 0.7 cm echogenic focus with shadowing in the mid right collecting system. N o hydronephrosis is seen. Other: None. CONCLUSION: 1. 0.7 cm stone in the right kidney. This was seen on the prior CT examination. 2. Questionable masslike area seen between the pancreas and the liver on ultrasound. In comparing th is with the CT, this area is thought to actually represent the duodenum. No mass was seen on the CT i n this region. Electronically signed by: Bruno Gaston MD 04/12/2018 1:53 PM EDT
[2018-04-12] MEDS ORDERED: ZOFR4TAB3 SL (14:09)
== END 2018-04-12 15:17 | disposition home or self-care (01) ==
LOC: PHED 11:13
DX: N23 Unspecified renal colic (principal); R74.8 Abnormal levels of other serum enzymes; Z87.448 Personal history of other diseases of urinary system; Z86.59 Personal history of other mental and behavioral disorders
CPT/HCPCS: 76705; 80053; 81001; 83690; 84703; 85007; 85027; 96361; 96374; 99285; J2765; J7030